=== PATIENT | male | born 1965 | race Asian ===

== ENCOUNTER 2017-03-08 08:49 | Outpatient (CLI) | payer OTHER ==
[~2017-03-08 08:49] MED LIST: COZAAR100 MG PO; INVOKANA300 MG OR; JANUMET XR1 TA1 PO
== END 2017-03-08 19:32 | disposition home or self-care (01) ==
LOC: RAD 08:49
DX: M25.512 Pain in left shoulder (principal); Q68.8 Other specified congenital musculoskeletal deformities

== ENCOUNTER 2017-08-31 08:45 | Emergency (ER) | payer OTHER ==
[~2017-08-31] VITALS: Ht 180.3 cm; Wt 126.1 kg
[2017-08-31 08:52] VITALS: TEMP 98.5
[2017-08-31] MEDS ORDERED: COZAAR100 MG PO (09:03)
[2017-08-31 11:38] LABS: PLATELET COUNT 180 K/uL (142-355)
[2017-08-31 11:43] LABS: POTASSIUM 4.1 mmol/L (3.6-5.2); SODIUM 138 mmol/L (136-145)
[2017-08-31 12:41] VITALS: BP 130/81
== END 2017-08-31 12:44 | disposition home or self-care (01) ==
LOC: ED 08:45
PROVIDERS: Emergency Medicine
DX: M54.81 Occipital neuralgia (principal)
CPT/HCPCS: 36415; 80053; 80307; 81000; 85027; 96372; 99283; G0479; J1885; J2360

== ENCOUNTER 2020-03-03 11:25 | Outpatient (CLI) | payer OTHER | END 2020-03-03 21:31 | disposition home or self-care (01) | LOC: LAB 11:25 | DX: E11.9 Type 2 diabetes mellitus without complications (principal); Z20.828 Contact with and (suspected) exposure to other viral communicable diseases | CPT/HCPCS: 87635; G2023; U0002 ==

== ENCOUNTER 2022-04-19 10:45 | Observation (INO) | payer OTHER ==
[~2022-04-19] VITALS: Ht 180.3 cm; Wt 125.7 kg
[2022-04-19 11:57] LABS: PLATELET COUNT 223 K/uL (142-355)
[2022-04-19 12:33] LABS: POTASSIUM 3.8 mmol/L (3.6-5.2)
[2022-04-19 13:50] VITALS: BP 135/88; TEMP 99.1; Ht 180.3 cm; Wt 125.7 kg
[2022-04-19 16:00] VITALS: BP 164/92; TEMP 99.1
[2022-04-19 20:00] VITALS: BP 138/82; TEMP 98.9
[2022-04-19] MEDS ORDERED: HYDR25TA60 PO (20:31)
[2022-04-19] MEDS ORDERED: METF500T PO (20:32)
[2022-04-19] MEDS ORDERED: GLIM4TAB PO (20:33)
[2022-04-19] MEDS ORDERED: CRESTOR20 MG PO (20:34)
[2022-04-19] MEDS ORDERED: METO50TA63 PO (20:34)
[2022-04-19] MEDS ORDERED: COZAAR25 MG PO (20:35)
[2022-04-19] MEDS ORDERED: AMLODIPINE BESYLATE PO (20:36)
[2022-04-19] MEDS ORDERED: CIALIS20 MG PO (20:37)
[2022-04-19] MEDS ORDERED: ONDANSETRON4 M2 PO (20:37)
[2022-04-19] MEDS ORDERED: HYDR-3182 PO (20:38)
[2022-04-20] VITALS: BP 115/66; TEMP 99.3
[2022-04-20 04:00] VITALS: BP 146/80; TEMP 98.6
[2022-04-20 04:53] LABS: PLATELET COUNT 229 K/uL (142-355)
[2022-04-20 05:30] LABS: POTASSIUM 3.5 mmol/L (3.6-5.2)
[2022-04-20 08:12] VITALS: BP 137/78; TEMP 98.1
[2022-04-20 12:30] VITALS: BP 138/87; TEMP 98.5
[2022-04-20] MEDS ORDERED: OXYC5TAB24 PO (13:42)
== END 2022-04-20 16:04 | disposition home or self-care (01) ==
LOC: MED/SURG 10:45
PROVIDERS: Internal Medicine; ADMIT Internal Medicine; ATTEND Internal Medicine
DX: K85.30 Drug induced acute pancreatitis without necrosis or infection (principal); T50.995A Adverse effect of other drugs, medicaments and biological substances, initial encounter; Y92.89 Other specified places as the place of occurrence of the external cause; Z86.711 Personal history of pulmonary embolism; Z79.01 Long term (current) use of anticoagulants; K21.9 Gastro-esophageal reflux disease without esophagitis; E78.49 Other hyperlipidemia; I10 Essential (primary) hypertension; I87.8 Other specified disorders of veins; E11.65 Type 2 diabetes mellitus with hyperglycemia; E66.8 Other obesity; Z68.37 Body mass index [BMI] 37.0-37.9, adult
CPT/HCPCS: 36415; 80053; 80061; 81002; 82948; 83690; 83735; 83880; 85027; 86140; 87635; 96360; 96361; 96375; 99220; G0378; G0379; J2270; J7120; U0003

== ENCOUNTER 2022-04-25 15:05 | Outpatient (CLI) | payer OTHER ==
[~2022-04-25 15:05] MED LIST changes: +AMLODIPINE BESYLATE PO; +CIALIS20 MG PO; +COZAAR25 MG PO; +CRESTOR20 MG PO; +GLIM4TAB PO; +HYDR-3182 PO; +HYDR25TA60 PO; +METF500T PO; +METO50TA63 PO; +ONDANSETRON4 M2 PO; +OXYC5TAB24 PO
== END 2022-04-25 19:37 | disposition home or self-care (01) ==
LOC: RAD 15:05
PROVIDERS: ATTEND Nurse Practitioner Family
DX: K85.80 Other acute pancreatitis without necrosis or infection (principal); Z09 Encounter for follow-up examination after completed treatment for conditions other than malignant neoplasm; R06.02 Shortness of breath

== ENCOUNTER 2023-01-26 08:57 | Outpatient (CLI) | payer OTHER | END 2023-01-26 20:48 | disposition home or self-care (01) | LOC: US 08:57 | PROVIDERS: ATTEND Internal Medicine | DX: R80.1 Persistent proteinuria, unspecified (principal) ==

== ENCOUNTER 2023-02-03 11:11 | Outpatient (CLI) | payer OTHER | END 2023-02-03 18:58 | LOC: RAD 11:11 | PROVIDERS: ATTEND Nurse Practitioner Family | DX: M79.671 Pain in right foot (principal) ==

== ENCOUNTER 2023-03-10 12:41 | Outpatient (CLI) | payer OTHER | END 2023-03-10 19:23 | disposition home or self-care (01) | LOC: CT 12:41 | PROVIDERS: ATTEND Nurse Practitioner Family | DX: F17.210 Nicotine dependence, cigarettes, uncomplicated (principal) ==